=== PATIENT | male | born 1995 | race African-American/Black ===

== ENCOUNTER 2016-05-22 16:23 | Emergency (ER) | payer OTHER ==
[~2016-05-22] VITALS: Ht 193 cm; Wt 79.4 kg
[2016-05-22] MEDS ORDERED: IBUP600T26 PO (16:44)
[2016-05-22] MEDS ORDERED: OXYC1TAB23 PO (16:44)
[2016-05-22] MEDS ORDERED: GI COCKTAIL 50ML BTL(HYOSCYAMINE/MAALOX/LIDOCAINE VISCOUS)(1:3:1) PO ONE (17:00)
--- NOTE | 2016-05-22 17:41 | ECGEPIP ---
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 RBBB ST ELEVATION, PROBABLY EARLY REPOLARIZATION NO PRIORS Electronically Signed On 05-22-2016 17:40:56 EDT by Rodolfo Spann
--- NOTE | 2016-05-22 17:44 | REP ---
Clinical: Chest pain . Comparison: None . Technique: PA and lateral. Findings: The mediastinum and cardiac silhouette are normal. The lung barnett are clear and without acute consolidation, effusion, or pneumothorax. The skeletal structures are intact and normal. Impression: 1. No acute cardiopulmonary process. Signed by Ambrocio Egan MD 05/22/2016 05:37 P
[2016-05-22] MEDS ORDERED: PEPC1TAB4 PO (17:51)
[2016-05-22] MEDS ORDERED: SUCR1SS PO (17:51)
[2016-05-22] MEDS ORDERED: SUCRALFATE SUSP 1GM/10ML UD PO ONE (18:00)
[2016-05-22] MEDS ORDERED: PANTOPRAZOLE 20 MG TAB PO ONE (18:00)
[2016-05-22 18:23] VITALS: BP 134/87
== END 2016-05-22 18:35 | disposition home or self-care (01) ==
LOC: EDBD 16:23 → M ED 17:30
DX: R07.9 Chest pain, unspecified (principal); Z79.899 Other long term (current) drug therapy